=== PATIENT | male | born 1985 | race Caucasian/White ===

== ENCOUNTER → 2018-09-25 | Outpatient (CLI) | payer OTHER ==
[~2018-09-25] MED LIST: AMBIEN 5 MG TABL5 M1 PO; IBUPROFEN 800800 M1 PO; LIORESAL 10 MG10 MG PO; MULTI VITAMIN1 EACH PO; TRAMADOL 50 MG50 MG PO
== END ==
LOC: M.ULTRA 15:49
DX: R10.32 Left lower quadrant pain (principal); Z88.8 Allergy status to other drugs, medicaments and biological substances; Z88.1 Allergy status to other antibiotic agents

== ENCOUNTER 2019-02-10 21:21 | Emergency (ER) | payer OTHER ==
[~2019-02-10] VITALS: Ht 175.3 cm; Wt 102.1 kg
[2019-02-10] MEDS ORDERED: BUSPIRONE HCL10 MG PO (21:30)
[2019-02-10] MEDS ORDERED: IBUPROFEN 800800 M1 PO (21:45)
[2019-02-10] MEDS ORDERED: AMOXICILLIN875 MG PO (21:45)
[2019-02-10] MEDS ORDERED: ASTEPRO205.5 MCG/ NASAL (21:45)
[2019-02-10 22:13] VITALS: BP 154/98
== END 2019-02-10 22:14 | disposition home or self-care (01) ==
LOC: M.ERS 21:21
DX: K08.89 Other specified disorders of teeth and supporting structures (principal); R09.81 Nasal congestion; Z90.89 Acquired absence of other organs; Z88.1 Allergy status to other antibiotic agents